=== PATIENT | male | born 1950 | race Two or more races ===

== ENCOUNTER → 2019-02-25 | Outpatient (CLI) | payer OTHER | END | disposition home or self-care (01) | LOC: RAD 07:21 | DX: Z96.652 Presence of left artificial knee joint (principal) ==

== ENCOUNTER 2019-03-18 08:23 | Outpatient (CLI) | payer OTHER | END 2019-03-18 17:00 | disposition home or self-care (01) | LOC: MRI 08:23 | DX: Z86.73 Personal history of transient ischemic attack (TIA), and cerebral infarction without residual deficits (principal) | CPT/HCPCS: 70551 ==

== ENCOUNTER 2019-04-17 09:24 | Outpatient (CLI) | payer OTHER | END 2019-04-17 15:55 | disposition home or self-care (01) | LOC: SONOGRAMA 09:24 | DX: M25.462 Effusion, left knee (principal) ==

== ENCOUNTER 2020-01-21 09:00 | Outpatient (CLI) | payer OTHER | END 2020-01-21 09:07 | disposition home or self-care (01) | LOC: RAD 09:00 | PROVIDERS: ATTEND Orthopaedic Surgery Adult Reconstructive Orthopaedic Surgery | DX: Z96.652 Presence of left artificial knee joint (principal) ==

== ENCOUNTER → 2020-08-10 | Outpatient (CLI) | payer OTHER | END | disposition home or self-care (01) | LOC: PPH VACUNA | PROVIDERS: ATTEND Emergency Medicine Pediatric Emergency Medicine | DX: Z23 Encounter for immunization (principal) ==